=== PATIENT | female | born 1965 | race Caucasian/White ===

== ENCOUNTER 2018-06-30 17:50 | Emergency (ER) | payer SELFPAY ==
[2018-06-30 18:07] VITALS: BP 141/89
--- NOTE | 2018-06-30 18:47 | ED ---
Throat Pain/Nasal Congestion - HPI Summary HPI Summary: right sided facial pain beginning 24 hours ago. not able to sleep as a result of pain , no relief with NSAIDs - History of Current Complaint Chief Complaint: UCRespiratory Time Seen by Provider: 06/30/18 18:01 Hx Obtained From: Patient Onset/Duration: Sudden Onset, Lasting Hours Severity: Moderate Associated Signs And Symptoms: Positive: Negative Related History: Seasonal Allergies, Smoking - Allergies/Home Medications Allergies/Adverse Reactions: Allergies Allergy/AdvReac Type Severity Reaction Status Date / Time Penicillins Allergy Severe Anaphylatic Verified 06/30/18 18:07 Shock Home Medications: Home Medications Mefenamic Acid 2 cap PO PRN 06/30/18 [History] PMH/Surg Hx/FS Hx/Imm Hx Previously Healthy: Yes - Surgical History Surgery Procedure, Year, and Place: 2 LUMPS REMOVED FROM BREAST, ENDOSCOPY, APPENDECTOMY Infectious Disease History: No Infectious Disease History: Reports: Traveled Outside the [place] in Last 30 Days - [place] - Social History Alcohol Use: None Substance Use Type: Reports: None Smoking Status (MU): Current Every Day Smoker Type: Cigarettes Amount Used/How Often: 5 CIG/DAY Review of Systems Constitutional: Negative Eyes: Negative Positive: Other - sinus pain, some bloody discharge Respiratory: Negative Gastrointestinal: Negative Genitourinary: Negative All Other Systems Reviewed And Are Negative: Yes Physical Exam Triage Information Reviewed: Yes Vital Signs On Initial Exam: Initial Vitals Temp Pulse Resp BP Pulse Ox 37.2 C 73 16 141/89 99 06/30/18 18:02 06/30/18 18:02 06/30/18 18:02 06/30/18 18:02 06/30/18 18:02 Vital Signs Reviewed: Yes Appearance: Positive: Well-Appearing, Pain Distress Skin: Positive: Warm Head/Face: Positive: Other - right maxillary sinus tenderness Eyes: Positive: Normal ENT: Positive: Normal ENT inspection Neck: Positive: Supple Respiratory/Lung Sounds: Positive: Clear to Auscultation Diagnostics - Vital Signs Vital Signs Temp Pulse Resp BP Pulse Ox 06/30/18 18:02 37.2 C 73 16 141/89 99 - Laboratory Lab Statement: Any lab studies that have been ordered have been reviewed, and results considered in the medical decision making process. EENT Course/Dx - Diagnoses Provider Diagnoses: Facial pain, acute Discharge - Sign-Out/Discharge Documenting (check all that apply): Patient Departure All imaging exams completed and their final reports reviewed: Yes - Discharge Plan Condition: Fair Disposition: HOME Prescriptions: Clindamycin HCl 150 mg PO QID #24 capsule Oxycodone HCl/Acetaminophen [Percocet 5-325 mg Tablet] 1 each PO TID PRN 5 Days #15 tablet MDD 3 PRN Reason: Pain - Moderate Patient Education Materials: Atypical Facial Pain (ED), Trigeminal Neuralgia ( ED) Referrals: No Primary Care Phys,NOPCP [Primary Care Provider] - - Billing Disposition and Condition Condition: FAIR Disposition: Home
== END 2018-06-30 18:57 | disposition home or self-care (01) ==
LOC: UCEAST 17:50
DX: G50.1 Atypical facial pain (principal); Z88.0 Allergy status to penicillin; F17.210 Nicotine dependence, cigarettes, uncomplicated
CPT/HCPCS: 70220; 99202; G0463